=== PATIENT | female | born 1985 | race Caucasian/White ===

== ENCOUNTER → 2017-12-18 08:26 | Outpatient (CLI) | payer OTHER, SELFPAY ==
[2017-12-18 10:10] LABS: Follicle Stimulating Hormone 8.3 mIU/mL; Thyroid Stim Hormone (TSH) 0.99 uIU/mL (0.358-3.74)
== END ==
PROVIDERS: Family Provider Family Medicine; PCP Family Medicine; Visit Provider Nurse Practitioner Women's Health
DX: N91.2 Amenorrhea, unspecified (principal)
CPT/HCPCS: 36415; 83001; 84443

== ENCOUNTER → 2018-01-07 12:16 | Outpatient (CLI) | payer OTHER, SELFPAY ==
--- NOTE | 2018-01-07 12:18 | US_ITS ---
STUDY: ULTRASOUND TRANSVAGINAL CLINICAL: Female, 32 years old. Pelvic pain, IUD placement TECHNIQUE: Transvaginal COMPARISON: None. FINDINGS: Normal uterine size measuring 6.7 x 3.8 x 2.8 cm in maximal craniocaudal dimension. There are no myometrial masses. Normal endometrial thickness measuring 3 mm. There are no endometrial masses, and there is no fluid in the endometrial cavity. Normal uterine cervix. Normal right ovary, measuring 3.2 x 2.4 x 1.5 cm. There are multiple follicles without a dominant cyst. Normal left ovary, measuring 2.3 x 1.3 x 1.2 cm. There are multiple follicles without a dominant cyst. There is no free fluid in the pelvis. Intrauterine contraceptive device identified in the endometrial canal in the uterine fundus/body. US/Transvaginal Non- IMPRESSION: 1. IUD. 2. No adnexal masses or pelvic free fluid. Electronically Signed: Niall Sebastian MD at 8:44 EDT , Service support ,
--- NOTE | 2018-01-07 12:18 | US_ITS ---
STUDY: ULTRASOUND TRANSVAGINAL CLINICAL: Female, 32 years old. Pelvic pain, IUD placement TECHNIQUE: Transvaginal COMPARISON: None. FINDINGS: Normal uterine size measuring 6.7 x 3.8 x 2.8 cm in maximal craniocaudal dimension. There are no myometrial masses. Normal endometrial thickness measuring 3 mm. There are no endometrial masses, and there is no fluid in the endometrial cavity. Normal uterine cervix. Normal right ovary, measuring 3.2 x 2.4 x 1.5 cm. There are multiple follicles without a dominant cyst. Normal left ovary, measuring 2.3 x 1.3 x 1.2 cm. There are multiple follicles without a dominant cyst. There is no free fluid in the pelvis. Intrauterine contraceptive device identified in the endometrial canal in the uterine fundus/body. US/Pelvic (Non ) IMPRESSION: 1. IUD. 2. No adnexal masses or pelvic free fluid. Electronically Signed: Niall Sebastian MD at 8:44 EDT , Service support ,
== END ==
PROVIDERS: Family Provider Family Medicine; PCP Family Medicine; Visit Provider Obstetrics & Gynecology
DX: R10.2 Pelvic and perineal pain (principal); Z30.431 Encounter for routine checking of intrauterine contraceptive device
CPT/HCPCS: 76830; 76856; 93976

== ENCOUNTER → 2018-06-10 18:40 | Outpatient (CLI) | payer OTHER, SELFPAY ==
[2018-06-17 10:35] LABS: HPV APTIMA, High Risk Negative (Negative)
== END ==
PROVIDERS: Family Provider Family Medicine; PCP Family Medicine; Visit Provider Obstetrics & Gynecology
DX: Z12.4 Encounter for screening for malignant neoplasm of cervix (principal)
CPT/HCPCS: 87624; 88175; G0145

== ENCOUNTER → 2022-10-01 | Outpatient (CLI) | payer BC, SELFPAY ==
[2022-10-07 21:40] LABS: HPV APTIMA, High Risk Negative (Negative)
== END | disposition home or self-care (01) ==
PROVIDERS: PCP Family Medicine; Referring Provider Nurse Practitioner Women's Health; Visit Provider Nurse Practitioner Women's Health
DX: Z12.4 Encounter for screening for malignant neoplasm of cervix (principal)
CPT/HCPCS: 87624; 88175; G0145

== ENCOUNTER → 2022-10-05 | Outpatient (CLI) | payer BC, SELFPAY ==
--- NOTE | 2022-10-05 07:37 | BI_ITS ---
MAMMOGRAPHY - BILATERAL SCREENING REASON FOR EXAM: Female, 37 years old. Routine annual screening examination. PERTINENT HISTORY: Non-contributory. TECHNIQUE: Digital bilateral breast jeramie (3D mammographic acquisition) in the CC and MLO projections. 2-D mediolateral oblique (MLO) and craniocaudad (CC) views of both breasts were obtained. CAD: Full Field Digital Mammography with Computer Added Detection was performed. COMPARISON: None. Baseline examination. FINDINGS: Breast Composition: The breasts are heterogeneously dense, which may obscure small masses. There are no dominant masses or suspicious calcifications. No other significant abnormalities are identified. BI/SCRN MAMM (CAD)W/JERAMIE BILAT IMPRESSION: Negative screening mammogram. Yearly followup mammogram recommended. (A) ASSESSMENT CATEGORY: BIRADS Category 1: Negative. A letter regarding these results will be sent to the patient by the facility within 30 days. Approximately 10% of breast cancers are not detected by mammography. A normal mammogram should not delay biopsy of a clinically suspicious abnormality. [id number] Electronically Signed: Adilson Fisher MD at 9:30 EST ,
== END | disposition home or self-care (01) ==
LOC: OPBI 07:36
PROVIDERS: PCP Family Medicine; Referring Provider Nurse Practitioner Women's Health; Visit Provider Nurse Practitioner Women's Health
DX: Z12.31 Encounter for screening mammogram for malignant neoplasm of breast (principal)
CPT/HCPCS: 77063; 77067

== ENCOUNTER → 2024-05-19 | Outpatient (CLI) | payer BC, SELFPAY ==
--- NOTE | 2024-05-19 07:20 | BI_ITS ---
MAMMOGRAPHY - BILATERAL SCREENING REASON FOR EXAM: Female, 39 years old. Routine annual screening examination. PERTINENT HISTORY: Non-contributory. TECHNIQUE: Digital bilateral breast jeramie (3D mammographic acquisition) in the CC and MLO projections. 2-D mediolateral oblique (MLO) and craniocaudad (CC) views of both breasts were obtained. CAD: Full Field Digital Mammography with Computer Added Detection was performed. COMPARISON: Comparison is made with prior examination dated October 05, 2022. FINDINGS: Breast Composition: The breasts are heterogeneously dense, which may obscure small masses. There are no dominant masses or suspicious calcifications. No other significant abnormalities are identified. Stable small benign-appearing bilateral axillary lymph nodes. BI/SCRN MAMM (CAD)W/JERAMIE BILAT IMPRESSION: Stable bilateral screening mammogram. Yearly follow-up mammogram recommended. (A) ASSESSMENT CATEGORY: BIRADS Category 2: Benign. A letter regarding these results will be sent to the patient by the facility within 30 days. Approximately 10% of breast cancers are not detected by mammography. A normal mammogram should not delay biopsy of a clinically suspicious abnormality. [id number] Electronically Signed: Adilson Fisher MD at 8:35 EDT ,
== END | disposition home or self-care (01) ==
LOC: OPBI 07:12
PROVIDERS: PCP Family Medicine; Referring Provider Obstetrics & Gynecology; Visit Provider Obstetrics & Gynecology
DX: Z12.31 Encounter for screening mammogram for malignant neoplasm of breast (principal)
CPT/HCPCS: 77063; 77067

== ENCOUNTER → 2025-04-02 | Outpatient (CLI) | payer BC, SELFPAY | END | disposition home or self-care (01) | LOC: BWCLAB 09:03 | PROVIDERS: PCP Family Medicine; Referring Provider Nurse Practitioner Women's Health; Visit Provider Nurse Practitioner Women's Health | DX: Z13.29 Encounter for screening for other suspected endocrine disorder (principal); R10.2 Pelvic and perineal pain; R23.2 Flushing | CPT/HCPCS: 36415; 84439; 84443; 86376; 87070; 87205 ==

== ENCOUNTER → 2025-04-10 | Outpatient (CLI) | payer BC, SELFPAY ==
--- NOTE | 2025-04-10 15:16 | US_ITS ---
PROCEDURE: PELVIC W/ TRANSVAGINAL REASON FOR EXAM: Left pelvic pain. TECHNIQUE: Procedure Code: USPELTVAG Modality: US Procedure: PELVIC W/ TRANSVAGINAL COMPARISON: None FINDINGS: LMP: March 27, 2025. Measurements: Uterus: 6.9 cm x 4.7 cm x 3.4 cm with a volume of 57.88 mL Endometrial Thickness: 10.6 mm Right Ovary: 3.1 cm x 2 cm x 2.2 cm with a volume of 7.25 mL. Left Ovary: 3.1 cm x 2.5 cm x 1.4 cm with a volume of 5.46 mL. TRANSABDOMINAL: Uterus: Unremarkable Endometrium: The endometrium measures 10.6 mm. It is trilaminar. There is a 2 mm x 2 mm x 1 mm cyst adjacent to the endometrium. Right ovary: Small follicle is seen within the ovary. Left ovary: There is a 2.3 cm 1.3 cm x 1.5 cm septated cyst in the left adnexa. There is a 3.5 mm nodule along its base. Further clinical correlation recommended. Other: No large pelvic mass identified. Transvaginal sonography was performed to better visualize the endometrium. TRANSVAGINAL: Uterus: Anteverted. Normal contour and myometrial echotexture. Endometrium: Endometrium measures 10.6 mm. There is a 2 mm x 2 mm x 1 mm endometrial cyst. Right ovary: Normal size and echotexture. Left ovary: 2.3 cm 1.3 cm 1.5 cm cyst with a 3.5 mm nodule along its base. Further follow-up recommended. Other adnexal findings: None. Cul-de-sac: No free intraperitoneal fluid identified. Tenderness: No tenderness US/Pelvic w/ Transvaginal IMPRESSION: Complex cyst in the left ovary as described. Further clinical follow-up recomm ended. Reading Location: [facility]
== END | disposition home or self-care (01) ==
LOC: US 15:12
PROVIDERS: PCP Family Medicine; Referring Provider Nurse Practitioner Women's Health; Visit Provider Nurse Practitioner Women's Health
DX: R10.2 Pelvic and perineal pain (principal)
CPT/HCPCS: 76830; 76856

== ENCOUNTER → 2025-05-21 | Outpatient (CLI) | payer BC, SELFPAY ==
--- NOTE | 2025-05-21 08:05 | US_ITS ---
PROCEDURE: PELVIC W/ TRANSVAGINAL 05/21/2025 REASON FOR EXAM: LEFT OVARIAN CYST Pelvic and perineal pain. TECHNIQUE: Procedure Code: USPELTVAG Modality: US Procedure: PELVIC W/ TRANSVAGINAL COMPARISON: Pelvic ultrasound dated 04/10/2025 FINDINGS: Measurements: Uterus: 6 6.6 x 4.3 x 3.0 with a volume of 44.8 mL Endometrial Thickness: 4 Right Ovary: 2.3 x 1.4 x 1.3 with a volume of 2.2 mL. Left Ovary: 2.4 x 1.7 x 1.6 with a volume of 3.4 mL. Uterus: The uterus is anteverted Endometrium: Endometrium measures 4 mm. The endometrium is hyperechoic. Cervix: Nabothian cysts are seen. Right ovary: Size, contour, and echogenicity are within normal limits. There are no masses seen. There is flow seen within the ovary. Left ovary: There is a dominant follicle/cystic structure measuring 1.4 x 1.3 x 1.2 cm. This is smaller when compared to the prior exam. There is a cystic mass seen adjacent to the left ovary or exophytic from the left ovary in the left adnexal region measuring 12 x 12 x 12 mm. This cystic mass has a hyperechoic nodule within it measuring 5 x 3 x 3 mm. The solid component is similar when compared to the prior ultrasound exam. Other: There is no free fluid in the cul-de-sac. BLADDER: Bladder measures 9.7 x 9.6 x 5.7 cm. Bladder volume is 279.5 mL. Bladder wall is smooth. There are no masses seen within the urinary bladder. US/Pelvic w/ Transvaginal IMPRESSION: The complex cystic mass in the left adnexal region warrants 1 more short-term f ollow-up ultrasound for re-evaluation to document whether resolves, remain stable or increases in size. Reading Location: [id number]
== END | disposition home or self-care (01) ==
PROVIDERS: PCP Family Medicine; Referring Provider Obstetrics & Gynecology; Visit Provider Obstetrics & Gynecology
DX: N83.202 Unspecified ovarian cyst, left side (principal)
CPT/HCPCS: 76830; 76856

== ENCOUNTER 2025-06-12 10:25 | Day surgery (SDC) | payer BC, SELFPAY ==
[2025-06-04 12:26] LABS: Hematocrit 41.7 % (37-47); Hemoglobin 14.4 g/dL (12.0-15.0); Mean Corp Hgb Conc 34.5 g/dL (32-36); Mean Corpuscular Volume 93.5 fL (81-99); Mean Platelet Vol. 8.8 fl (6.2-12.0); Platelet Count 366 K/mm3 (150-450); RBC Distribution Width CV 12.0 % (11.6-14.6); RBC Distribution Width SD 41.7 fl (35.1-43.9); Red Blood Count 4.46 M/mm3 (4.2-5.4); White Blood Count 10.4 K/mm3 (4.4-11.0)
--- NOTE | 2025-06-04 14:46 | PAT.ANE_ITS ---
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 When Was Last Pacemaker Check QUESTION #4 FULL TEXT: You/Your Family Experience fever (hyperthermia) with Anesthesia Last Oral Intake Last Oral intake: Last Oral Intake NPO since Meds taken in AM with sips of water? 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 Female Yes 06/04/25 11:34 HX of Motion Sickness Yes 06/04/25 11:34 HX of N/V After Surgery Yes 06/04/25 11:34 Non-Smoker Yes 06/04/25 11:34 Duration of Surgery greater Yes 06/04/25 11:34 than 60 minutes Number of Risk Factors 5 06/04/25 11:34 PONV Score Severe Risk 06/04/25 11:34 Height & Weight Height & Weight: Anesthesia: Height & Weight Height 5 ft 5 in 04/30/25 08:16 Respiratory Assessment Respiratory Assessment - fence machine operator: Respiratory Tract Infection Hx - fence machine operator Hx Respiratory Tract Infection No 06/04/25 11:34 STOP Sleep Apnea STOP Sleep Apnea - fence machine operator: STOP Sleep Apnea - fence machine operator Hx Hypertension No 06/04/25 11:34 Hx Sleep Apnea No 06/04/25 11:34 CPAP BIPAP Do you snore loudly (louder Yes 06/04/25 11:34 than talking or can be heard Do you often feel tired/ No 06/04/25 11:34 fatigued/ sleepy during daytime? Has anyone observed you stop No 06/04/25 11:34 breathing during sleep? STOP Results Negative 06/04/25 11:34 QUESTION #5 FULL TEXT : Do you snore loudly (louder than talking or can be heard through closed doors)? 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 Specify any problems Hx of Preganancy in last 3 No 06/04/25 11:34 Months Nurse Filling Out Transfusion MGRIFFITH 06/04/25 11:34 & Questions: Date: 06/04/25 06/04/25 11:34 Time: 11:37 06/04/25 11:34 Patient unable to answer at this time (ie. confused, unrespo /Reproduction History /Reproductive History - fence machine operator: /Reproductive Hx- fence machine operator Hx Now No 06/04/25 11:34 Gestational Age (in weeks): EDC: Hx Hx Para Hx Section SAB No 06/04/25 11:34 [facility] Medical History (Updated 06/04/25 @ 12:03 by Leandra Cabello) Wears glasses Anxiety Depression Alcohol use Dietary restriction PONV (postoperative nausea and vomiting) Gastric reflux Non-smoker Shortness of breath on exertion History of stress test Hypercalcemia Elevated d-dimer Depression with anxiety Home Medications Medication Instructions Recorded Last Taken Type ascorbic acid (vitamin C) 500 mg 500 mg PO DAILY 11/30 Unknown History capsule multivitamin 1 tab PO QDAY 11/30/17 Unkno wn History sertraline 100 mg tablet (Zoloft) 100 mg PO QDAY 07/09 Unknown History bupropion HCl 150 mg 24 hr tablet, 150 mg PO QAM 09/24 Unknown History extended release (Wellbutrin XL) famotidine 40 mg tablet (Pepcid) 40 mg PO QDAY 4 Unknown History psyllium husk 0.52 gram capsule 0.52 g PO QDAY 4 Unknown History (Daily Fiber) DGL PLUS 1 cap PO DAILY 06/04/25 Unkn own History cetirizine 10 mg capsule (All Day 10 mg PO QHS 5 Unknown History Allergy (cetirizine)) magnesium glycinate 100 mg PO DAILY 06/04/25 Unk nown History Allergy/AdvReac Type Severity Reaction Status Date / Time oseltamivir (From Tamiflu) Allergy Mild Other Verified 06/04/25 11:28 sulfamethoxazole (From Allergy Mild rash Verified 06/04/25 11:28 Septra) trimethoprim (From Septra) Allergy Mild rash Verified 06/04/25 11:28 Family History Father Heart disease Myocardial infarction Mother Thyroid disorder Sister Thyroid disorder Grandfather Colon cancer Surgical History (Updated 06/04/25 @ 11:34 by Leandra Cabello) History of esophagogastroduodenoscopy (EGD) History of wisdom tooth extraction Social History Smoking Status: Never smoker alcohol intake: current details: occasionally substance use type: does not use caffeine: Yes what type of physical activity do you participate in: walking and yoga frequency: 1-2 times per week seatbelt use: always do you feel safe at home: Yes additional social history: -Tanmay- 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 Normal sinus rhythm Stress test pertinent findings: August 13, 2023. Patient achieved METS of 10.2. Normal blood pressure response to stress. No ST changes. Normal stress test. Recommendation Anesthesia Recommendation Anesthesia recommendation: OPTIMIZED for anesthesia
[2025-06-12] VITALS (10 sets, daily range): BP systolic 106–124; BP diastolic 70–88; PULSE 58–73; RESP 16; TEMP 36.3–36.7; O2SAT 98–100; BMI 33.0
[2025-06-12 10:57] LABS: Internal QC Validated? YES +Cl - CLEAR BKGD; Pregnancy, Urine Negative Negative; Record Kit Lot#,Urine Preg 0000980607
[2025-06-12] MEDS: Lactated Ringers 1,000 ML 15 ML IV (10:58)
--- NOTE | 2025-06-12 11:37 | PCM.PRE.AN2 ---
ASA Classification* ASA Classification ASA Classification: 2 Assessment & Plan Anesthesia* Anesthesia Assessment Anesthesia Assessment: Discussed sedation and/or anesthesia options, risks, benefits, and alternatives with patient/parents/legal guardian/POA. Questions invited. The patient/parents/legal guardian/POA seems to understand and agrees to proceed with anesthesia plan. Reviewed the physical assessment, medical history, allergy history and patient home medications list prior to surgery/procedure/anesthetic and documented any changes. Performed airway and anesthesia risk assessments. Anesthesia Type Anesthesia Type: General History Source History Obtained from:: Patient and Chart Anesthesia Focused Assessment* Temperature: 98.1 F Pulse Rate: 73 Blood Pressure: 124/88 Respiratory Rate: 16 Pulse Ox: 99 Oxygen Delivery Method: Room Air Airway Assessment Mouth opens: >3 cm Mallampati Score: II Teeth Condition: Intact Neck Range of motion (ROM): Full ROM Labs Anesthesia Preop lab: CBC WBC, (4.4-11.0) 10.4 K/mm3 06/04/25, 12:03 RBC, (4.2-5.4) 4.46 M/mm3 06/04/25, 12:03 Hgb, (12.0-15.0) 14.4 g/dL 06/04/25, 12:03 Hct, (37-47) 41.7 % 06/04/25, 12:03 Plt Count, (150-450) 366 K/mm3 06/04/25, 12:03 CHEMISTRY TSH, (0.300-4.200) 0.975 uIU/mL 04/02/25, 09:04 COAG Urine Test Negative Negative Today, 10:36 Pre-Assessment Diagnosis/Proposed Procedure Planned Operative Procedure(s): Laparoscopic, Salpingectomy Ovarian Cystectomy possible Left Oophorectomy, Dilation and Curettage Hysteroscopy Hysteroscopy,Dilation and Curettage Anesthesia History 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 When Was Last Pacemaker Check QUESTION #4 FULL TEXT: You/Your Family Experience fever (hyperthermia) with Anesthesia Last Oral Intake Last Oral intake: Last Oral Intake NPO since 05:30 06/12/25 10:54 Meds taken in AM with sips of Yes 06/12/25 10:54 water? 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 Female Yes 06/04/25 11:34 HX of Motion Sickness Yes 06/04/25 11:34 HX of N/V After Surgery Yes 06/04/25 11:34 Non-Smoker Yes 06/04/25 11:34 Duration of Surgery greater Yes 06/04/25 11:34 than 60 minutes Number of Risk Factors 5 06/04/25 11:34 PONV Score Severe Risk 06/04/25 11:34 Height & Weight Height & Weight: Anesthesia: Height & Weight Height 5 ft 5 in 06/12/25 10:54 Weight: 90 kg 06/12/25 10:54 Body Mass Index (BMI) 33.0 06/12/25 10:54 Respiratory Assessment Respiratory Assessment - content development specialist: Respiratory Tract Infection Hx - content development specialist Hx Respiratory Tract Infection No 06/04/25 11:34 STOP Sleep Apnea STOP Sleep Apnea - content development specialist: STOP Sleep Apnea - content development specialist Hx Hypertension No 06/04/25 11:34 Hx Sleep Apnea No 06/04/25 11:34 CPAP BIPAP Do you snore loudly (louder Yes 06/04/25 11:34 than talking or can be heard Do you often feel tired/ No 06/04/25 11:34 fatigued/ sleepy during daytime? Has anyone observed you stop No 06/04/25 11:34 breathing during sleep? STOP Results Negative 06/04/25 11:34 QUESTION #5 FULL TEXT : Do you snore loudly (louder than talking or can be heard through closed doors)? 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 Specify any problems Hx of Preganancy in last 3 No 06/04/25 11:34 Months Nurse Filling Out Transfusion MGRIFFITH 06/04/25 11:34 & Questions: Date: 06/04/25 06/04/25 11:34 Time: 11:37 06/04/25 11:34 Patient unable to answer at this time (ie. confused, unrespo /Reproduction History /Reproductive History - content development specialist: /Reproductive Hx- content development specialist Hx Now No 06/04/25 11:34 Gestational Age (in weeks): EDC: Hx Hx Para Hx Section SAB No 06/04/25 11:34 Active Medications Active Medications: Current Medications Generic Name Dose Route Start Last Admin Trade Name Freq PRN Reason Stop Dose Admin Lactated Ringer's 1,000 mls @ 15 mls/hr 06/12/25 10:30 06/12/25 10:58 IV 15 mls/hr .Q48H ANTONY Administration PFSH Medical History Wears glasses Anxiety Depression Alcohol use Dietary restriction PONV (postoperative nausea and vomiting) Gastric reflux Non-smoker Shortness of breath on exertion History of stress test Hypercalcemia Elevated d-dimer Depression with anxiety Home Medications Medication Instructions Recorded Last Taken Type ascorbic acid (vitamin C) 500 mg 500 mg PO DAILY 11/30/17 Unknown History capsule multivitamin 1 tab PO QDAY 11/30/17 Unknown History sertraline 100 mg tablet (Zoloft) 100 mg PO QDAY 07/09/20 Unknown History bupropion HCl 150 mg 24 hr tablet, 150 mg PO QAM 09/24/21 Unknown History extended release (Wellbutrin XL) famotidine 40 mg tablet (Pepcid) 40 mg PO QDAY 05/24/24 06/12/25 05:30 History psyllium husk 0.52 gram capsule 0.52 g PO QDAY 05/24/24 Unknown History (Daily Fiber) DGL PLUS 1 cap PO DAILY 06/04/25 Unknown History cetirizine 10 mg capsule (All Day 10 mg PO QHS 06/04/25 Unknown History Allergy (cetirizine)) magnesium glycinate 100 mg PO DAILY 06/04/25 Unknown History Allergy/AdvReac Type Severity Reaction Status Date / Time oseltamivir (From Tamiflu) Allergy Mild Other Verified 06/12/25 10:53 sulfamethoxazole (From Allergy Mild rash Verified 06/12/25 10:53 Septra) trimethoprim (From Septra) Allergy Mild rash Verified 06/12/25 10:53 Family History Father Heart disease Myocardial infarction Mother Thyroid disorder Sister Thyroid disorder Grandfather Colon cancer Surgical History History of esophagogastroduodenoscopy (EGD) History of wisdom tooth extraction Social History Smoking Status: Never smoker alcohol intake: current details: occasionally substance use type: does not use caffeine: Yes what type of physical activity do you participate in: walking and yoga frequency: 1-2 times per week seatbelt use: always do you feel safe at home: Yes additional social history: -Tanmay- 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
[2025-06-12] MEDS: Lidocaine 1% (5 ml sdv) 5 ML Vial IV (11:52)
--- NOTE | 2025-06-12 12:00 | PCM.HP.BLA ---
History and Physical Date of Admission: 06/12/25 Vital Signs 04/30/2508:16 06/04/2510:52 Height 5 ft 5 in 5 ft 5 in Weight: 203 lb 7 oz BMI 33.8 BP 132/81 H Intake Visit Reasons: Lap. 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 Required: No Is patient in pain?: Yes (dull left pelvic pain) Pain scale (1-10): 4 Allergies oseltamivir (From Tamiflu) Allergy (Mild, Verified 06/04/25 11:00) Other sulfamethoxazole (From Septra) Allergy (Mild, Verified 06/04/25 11:00) rash trimethoprim (From Septra) Allergy (Mild, Verified 06/04/25 11:00) rash Medications Medication Instructions Recorded Confirmed Type ascorbic acid (vitamin C) 500 mg mg PO 11/30/17 06/04/25 History capsule multivitamin 1 tab PO QDAY 11/30/17 06/04/25 History sertraline 100 mg tablet (Zoloft) 100 mg PO QDAY 07/09/20 06/04/25 History bupropion HCl 150 mg 24 hr tablet, 150 mg PO QAM 09/24/21 06/04/25 History extended release (Wellbutrin XL) famotidine 40 mg tablet (Pepcid) 40 mg PO QDAY 05/24/24 06/04/25 History psyllium husk 0.52 gram capsule 0.52 g PO QDAY 05/24/24 06/04/25 History (Daily Fiber) Patient : No : No PFSH Medical History Hypercalcemia Elevated d-dimer Depression with anxiety Family History Father Heart disease Myocardial infarction Mother Thyroid disorder Sister Thyroid disorder Grandfather Colon cancer Social History Smoking Status: Never smoker alcohol intake: current details: occasionally substance use type: does not use caffeine: Yes what type of physical activity do you participate in: walking and yoga frequency: 1-2 times per week seatbelt use: always do you feel safe at home: Yes additional social history: -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 BS ovarian cystectomy poss left ooph D&C Details: The patient is a 40-year-old female with a history of pelvic pain and heavy menstrual bleeding presenting for a pre-operative visit. Pelvic Pain - Reports severe, sharp pain in the left lower quadrant starting , described as "uncomfortable" and "sharp." - Pain onset followed lifting an object on Wednesday night; unsure if pain is related to lifting or missing magnesium supplement for a couple of days. - Pain improved with heat application; currently described as a "dull, annoying pain." - No fever; mild nausea reported but not significant. - Pain alleviated by applying pressure to the area. Menstrual History - Currently in the week before her period; reports heavy menstrual bleeding. - Menstrual cycles have shortened from 10-12 days to 3-4 days but remain heavy. Pre-Operative Concerns - Expresses anxiety about upcoming surgery. - Inquires about the impact of being on her period during surgery. Other Concerns - Reports a month-long history of pressure in the ear and hearing her heartbeat loudly in the ear when standing up or lying down. Past Diagnostic Results - Imaging showed an abnormal cyst on the left ovary with a solid component that did not change in size. History 0 Elective abortions Hx Para Spontaneous abortions Hx # Term Pregnancies Ectopic pregnancies Hx # Pregnancies Multiple births # of living children ROS Cardio Card: Denies chest pain Resp Resp: Denies cough or dyspnea Musc Musc: Denies arthralgias, back pain or muscle weakness Skin Skin/Breast: Denies alopecia, change in hair, dry skin, breast mass, breast pain or breast skin changes Neuro Neuro: Reports system reviewed and no additional complaints, except as documented Psych Psych: Reports system reviewed and no additional complaints, except as documented Endo Endo: Denies cold intolerance, excessive sweating, heat intolerance or polydipsia Anupam/Lymph Hematologic/Lymphatic: Denies easy bleeding, Denies easy bruising and Denies lymphadenopathy ROS Narrative Constitutional: (-) fever Ears/Nose/Mouth/Throat: (+) ear pressure, (+) pulsatile tinnitus Gastrointestinal: (+) nausea Genitourinary: (+) pelvic pain left lower quadrant, (+) menorrhagia Psychiatric: (+) anxiety Exam Const General: cooperative, healthy appearing, comfortable HENNH Head: normal to inspection Nose: external nose normal Face and sinus: normal facial exam Neck Neck: normal visual inspection, full ROM, no lymphadenopathy Thyroid: thyroid normal Chest Chest palpation & inspection: normal inspection of the chest RRR CTAB Resp Effort & Inspection: normal respiratory effort GI Inspection: normal to inspection Palpation: soft, NTTP ND Extrem General: pedal edema Coding Level of Care Code No Charge Diagnoses Left ovarian cyst N83.202 Endometriotic cyst N80.9 Sterilization Z30.2 Pelvic pain R10.2 Abnormal uterine bleeding N93.9 Assessment and Plan Assessment and Plan (1) Left ovarian cyst: Status: Acute Comment: 3cm septated with nodule. plan laparoscopic bilateral salpingectomy, left ovarian cystectomy possible oophorectomy, d and c hysteroscopy (2) Endometriotic cyst: Status: Acute (3) Sterilization: Status: Acute (4) Pelvic pain: Status: Acute (5) Abnormal uterine bleeding: Status: Acute Comment: plan d and c hysteroscopy Plan # Pelvic and perineal pain (R10.20): - Intermittent left lower quadrant pain, improving and alleviated by heat. - No additional imaging indicated at this time given decreased severity. - Instructed to seek emergent evaluation if acute, severe pain recurs, to rule out ovarian torsion. # Excessive and frequent menstruation with regular cycle (N92.0): - Heavy yet shortened menstrual flow (previously 10–12 days, currently 3–4 days). - Planned dilation and curettage with hysteroscopy to inspect and sample the endometrium, aiming to alleviate excessive bleeding. # Cyst of left ovary (N83.202): - Demonstrates stable size overall; the solid portion remains unchanged, with no radiographic concern for malignancy. - Scheduled laparoscopic intervention to remove the cyst or the entire left ovary if warranted based on intraoperative findings. - Reinforced warnings to watch for severe or unremitting pain suggestive of torsion. # Preprocedural examination (Z01.818): - Reviewed planned diagnostic laparoscopy, bilateral salpingectomy for sterilization, possible left oophorectomy, and D&C hysteroscopy. - Discussed standard surgical risks, including anesthesia complications, hemorrhage, infection, and injury to surrounding organs; assured intraoperative repair if necessary. - Provided preoperative instructions: no solid foods for 8 hours and clear liquids (including black coffee or tea) permissible until 2 hours before surgery. - Advised on postoperative pain control with naproxen and Percocet, use of heat therapy for comfort, and guidance on incision care. - Explained typical same-day discharge criteria following anesthesia recovery, stable vitals, controlled pain, and safe ambulation. - Counseled on resuming diet as tolerated, avoiding heavy lifting (>30–40 lbs) for 3–4 weeks, and following discharge instructions for showering, dressing changes, and activity level. After discussing the patient's diagnosis and treatment plan options, patient wishes to proceed with surgical management. I have discussed with the patient the risks, benefits, and alternatives of the procedure which include but are not limited to risks of anesthesia, bleeding, infection, possible damage to bowel, bladder, or surrounding vasculature which could lead to additional surgery to evaluate any complications. Patient agrees to procedure and wishes to proceed. ACOG/uptodate references given for additional information regarding procedure. Patient Instructions: - Take naproxen and use Percocet as needed for pain at home; applying a heating pad to your lower abdomen can also help. - Do not eat any solid foods for 8 hours before your surgery. - You may have clear liquids—including black coffee or tea without cream—up until 2 hours before your surgery. - Expect to go home the same day once you are awake, eating, drinking, and able to walk with your pain under control. - After surgery, you may resume your normal diet—choose foods that feel comfortable. - Shower starting the day after surgery. - Keep your incision dressings (bandages or Tegaderm) in place for up to one week; if they become wet or saturated, change them and cover the area with clean gauze or band-aids. - After 48 hours, you may remove the dressings and leave the incisions open to air if they appear dry and clean. - Resume most activities in 1–2 weeks as you feel able, but avoid lifting more than 30–40 pounds for 3–4 weeks. - Do not drive until you are pain-free and no longer taking Percocet. - If you develop sudden, severe pelvic pain that does not improve with rest or bfiv-spi-eavronk pain relievers, go to the nearest emergency room right away. UPDATE- I have seen the patient and performed any clinically relevant updates to the history and physical exam. Hui Kendrick MD
--- NOTE | 2025-06-12 12:05 | FALS_PTH ---
PATIENT: LOVE GUERRERO [place] [facility] [id number] AGE/SX: 40/F ROOM: RE06/12/[address]: Dr. Hui Kendrick MD : [id number] BED: DIS: 06/12/2025 SPEC #: [id number] RECD: 06/12/25 13:20 STATUS: PARISA REQ #: [id number] MALLORY: 06/12/25 12:[address]: Hui Kendrick DEPT: SURGICAL PATHOLOGY RECD BY: Chandan Napier ENTERED: 06/12/25 14:38 SP TYPE: FALL TUBES OTHR DR: Dr. Umair Bhatia MD Tissues: A - Fallopian tube B - Endometrium, NOS Procedures: Surgery Specimen Level II Surgery Specimen Level IV HEADER OPERATION: Laparoscopic, salpingectomy ovarian cystectomy PRE-OP DIAGNOSIS: Left ovarian cyst, endometriotic cyst, sterilization, pelvic pain, abnormal uterine bleeding TISSUE SUBMITTED: A- Bilateral fallopian tubes, B- Endometrial curettings MICROSCOPIC DIAGNOSIS A. Bilateral fallopian tubes, ovarian cyst, laparoscopic salpingectomy and ovarian cystectomy: - Fallopian tube x2 with complete luminal cross-sections identified. - Portion of ovary with portion of corpus luteum. B. Endometrium, curettage: - Disordered proliferative endometrium with asynchronous shedding stroma. - Benign endocervical mucosa. MICROSCOPIC DESCRIPTION Slides are reviewed. GROSS DESCRIPTION Received in 2 formalin containers labeled with the patient's name and date of . Designated as: A. "Bilateral fallopian tubes" are 2 pink-red undesignated fimbriated fallopian tubes, 5.4 x 0.6 cm and 6.9 x 0.6 cm. Within the container is a free-floating, 1.2 x 1.0 x 0.3 cm rincon-pink to yellow, disrupted apparent cyst containing yellow fluid. Docket Specialist sections are submitted in 4 cassettes as follows: A1-A3: Fallopian tubesA4: Free-floating cyst, trisected B. "Endometrial curettings" is a 2.5 x 2.3 x 0.2 cm aggregate of clotted blood and flecks of possible tissue. Entirely submitted in 1 cassette. LA 06/12/2025 CPT:54044,[id number]
[2025-06-12] MEDS: fentaNYL 100 MCG/2 ML Ampul IV (12:11)
[2025-06-12] MEDS: dexMEDEtomidine 200 MCG/2 ML ML 28 MCG IV (12:34)
--- NOTE | 2025-06-12 12:37 | OP.PCM_ITS ---
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 professor: Yes Backend Tester: Cristal Salas Tasks completed by customer care assistant: Opening & closing, Altering tissue and Insert Trochanter Additional assistant golf coach?: No Type of Anesthesia: General RN Documented Start/Stop Times: Operation Date: 06/12/25 12:05 Case Time Into Pre-Op 06/12/25 10:28 Out of Pre-Op 06/12/25 11:43 Anesthesia Start 06/12/25 11:47 Into Room 06/12/25 11:47 Procedure Start 06/12/25 12:08 Procedure End 06/12/25 12:37 Anesthesia End 06/12/25 12:45 Out of Room 06/12/25 12:45 Into Recovery 06/12/25 12:47 Procedure Start Time: 12:08 Procedure Stop Time: 12:37 Select all DRAINS/GRAFTS/IMPLANTS that apply: None Estimated Blood Loss: 10 Specimen collected: Yes Description of specimen(s) removed: emc tubes cyst Description of surgery: Patient was taken in the operating room and was placed under general anesthesia was prepped and draped in normal sterile fashion in the dorsal lithotomy position. Bladder was drained of clear urine and SCDs were on preoperatively. Uterus was sounded and a uterine manipulator was placed after dilating. Attention was then paid to the abdominal portion of the procedure and the umbilicus was elevated with towel clamps and injected with Marcaine and after a 5 mm incision was made and the Veress needle was entered into the abdomen confirmed to be intra-abdominal with a low opening pressure of less than 5 mmHg. Abdomen was insufflated with CO2 gas and a 5 mm optical trocar was placed under direct visualization. Left and right lower quadrant 5 mm ports were placed under direct visualization. Uterus was well visualized and upon inspection of the pelvis bilateral ovaries were noted to be within normal limits and so over the tubes, there was a rounded cystic structure found to be on the epiploic area just lateral to the left ovary. This was dissected out and removed and sent to pathology for analysis. Excellent hemostasis was noted in the pelvis. Liver and upper abdomen were visualized notably within normal limits and no other gross abnormalities were seen in the abdomen. All instruments removed from the abdomen after gas was desufflated. Port sites were closed with 3-0 Monocryl Steri's and op sites were applied. Attention was then paid to the vaginal portion of procedure for the D&C hysteroscopy. Cervix was dilated to allow passage of a 5 mm hysteroscope the uterine lining was well-visualized and noted to have no significant abnormalities sharp curettage was performed. Tissue sent for analysis and bleeding was noted to be on the anterior lip of the cervix therefore a stitch of 0 Vicryl was used to obtain hemostasis. All instruments removed from the patient and the patient was awoken and taken recovery in stable condition Surgical Findings: nl uterus tubes ovarie cyst on the epiploica of the sigmoid Complications Complications: No
--- NOTE | 2025-06-12 12:50 | PCM.POST.ANE ---
Anesthesia: Postop Eval I Current Vital Signs Temperature: 98 F Pulse Rate: 66 Blood Pressure: 106/70 Respiratory Rate: 16 Pulse Ox: 98 Oxygen Delivery Method: Room Air Assessment Airway patent: Yes Spontaneous unlabored respirations: Yes Mental status: Awake and Calm nausea: No Vomiting: No Anesthesia Complication: No Fluid Hydration Crystalloid volume administer (ml): 700 Total IV fluid infused: 700 Progress Note Anesthesia document: Postop Eval 1 completed: Yes
--- NOTE | 2025-06-12 13:34 | DCINST_ITS ---
Discharge Instructions DC O2, CPAP, BIPAP needs Home O2 Discharge instructions: No Dressing / Incision Discharge Activity: Return to Normal Activity, May Not Drive ( while taking narcotic pain meds, when pain free), May Shower and May Take a Tub Bath (in 7 days) May resume sexual activity in: 1 week Weight Bearing Status: Full weight bearing Dressing / Incision Call your doctor if your incision/area has: Continuous Slow Oozing, Sudden Increased Bleeding, Increased Pain/ Swelling, Increased Redness and Foul Smelling Discharge Call your doctor if you observe: Fever of 101 or Higher, Using more than 1 pad per hour, Shortness of breath, Chest pain and Uncontrolled pain Suture Line Care: Avoid Pulling/Pushing and Avoid Pinching/Bending Remove Dressing in: 1 week (if present) Cleanse incision/area with: Soap & Water and Keep Dressing Clean & Dry Follow Up Care When: Call to make an appointment with your doctor for a fu/incision check in 1- 2 weeks. Test Results: Test results from this visit will be discussed in further detail at your follow- up appointment, if applicable. Discharge Plan Admission Attending Provider: Hui Kendrick Primary Care Provider: Umair Bhatia Instructions Print Language: Korean Discharge Orders/Prescriptions Prescriptions: New oxycodone-acetaminophen [Percocet] 5-325 mg tablet 1 tab PO Q4H PRN (Reason: pain) 7 Days Qty: 20 0RF naproxen 500 mg tablet 500 mg PO BID PRN PRN (Reason: Pain) Qty: 30 1RF No Action multivitamin tablet 1 tab PO QDAY ascorbic acid (vitamin C) 500 mg capsule 500 mg PO DAILY sertraline [Zoloft] 100 mg tablet 100 mg PO QDAY bupropion HCl [Wellbutrin XL] 150 mg tablet extended release 24 hr 150 mg PO QAM famotidine [Pepcid] 40 mg tablet 40 mg PO QDAY psyllium husk [Daily Fiber] 0.52 gram capsule 0.52 g PO QDAY All Day Allergy (cetirizine) 10 mg capsule 10 mg PO QHS magnesium glycinate 100 mg magnesium capsule 100 mg PO DAILY DGL PLUS 1 cap PO DAILY Referrals / Follow Up: Umair Bhatia MD [Primary Care Provider, Medical] Disposition Disposition (needs filled in before D/C Order can be placed): Home, Self Care
--- NOTE | 2025-06-12 16:03 | POSTOPAN2_ITS ---
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.[email or web address] Spontaneous unlabored Yes 06/12/25 12:54 PRODUCT INSPECTION SUPERVISOR.GDOTT respirations Mental status Awake,Calm 06/12/25 12:54 PRODUCT INSPECTION SUPERVISOR.GDOTT nausea No 06/12/25 12:54 PRODUCT INSPECTION SUPERVISOR.GDOTT Vomiting No 06/12/25 12:54 PRODUCT INSPECTION SUPERVISOR.GDOTT Anesthesia Postop Eval I: Fluid Summary Crystalloid volume administer 700 06/12/25 12:54 PRODUCT INSPECTION SUPERVISOR.GDOTT (ml) Colloids volume administered ( ml) Blood Product volume administered (ml) Total IV fluid infused 700 06/12/25 12:54 PRODUCT INSPECTION SUPERVISOR.GDOTT Anesthesia Postop Eval I: Summary Notes Anesthesia Complication No 06/12/25 12:54 PRODUCT INSPECTION SUPERVISOR.GDOTT Anesthesia Complication Comment: Post-operative progress note Anesthesia: Postop Eval II Evaluation Mental status: Awake and Calm Pain Level: 0 nausea: No Vomiting: No Complications Anesthesia Complication: No
--- NOTE | 2025-06-12 16:03 | PCM.POSTANE2 ---
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.GDOTT Spontaneous unlabored Yes 06/12/25 12:54 STRENGTH AND CONDITIONING COACH.GDOTT respirations Mental status Awake,Calm 06/12/25 12:54 STRENGTH AND CONDITIONING COACH.GDOTT nausea No 06/12/25 12:54 STRENGTH AND CONDITIONING COACH.GDOTT Vomiting No 06/12/25 12:54 STRENGTH AND CONDITIONING COACH.GDOTT Anesthesia Postop Eval I: Fluid Summary Crystalloid volume administer 700 06/12/25 12:54 STRENGTH AND CONDITIONING COACH.GDOTT (ml) Colloids volume administered ( ml) Blood Product volume administered (ml) Total IV fluid infused 700 06/12/25 12:54 STRENGTH AND CONDITIONING COACH.GDOTT Anesthesia Postop Eval I: Summary Notes Anesthesia Complication No 06/12/25 12:54 STRENGTH AND CONDITIONING COACH.GDOTT Anesthesia Complication Comment: Post-operative progress note Anesthesia: Postop Eval II Evaluation Mental status: Awake and Calm Pain Level: 0 nausea: No Vomiting: No Complications Anesthesia Complication: No
== END 2025-06-12 14:54 | disposition home or self-care (01) ==
LOC: SDC 10:26 → AC 10:27
PROVIDERS: PCP Family Medicine; Referring Provider Obstetrics & Gynecology; Visit Provider Obstetrics & Gynecology
DX: N83.12 Corpus luteum cyst of left ovary (principal); F41.8 Other specified anxiety disorders; N93.9 Abnormal uterine and vaginal bleeding, unspecified; Q43.8 Other specified congenital malformations of intestine; K21.9 Gastro-esophageal reflux disease without esophagitis; Z30.2 Encounter for sterilization; Z79.899 Other long term (current) drug therapy
CPT/HCPCS: 58662; 58661; 58558; 00952; 36415; 81025; 85027; 86850; 86900; 86901; 88302; 88305; J2405